=== PATIENT | female | born 1965 | race Caucasian/White ===

== ENCOUNTER 2018-02-19 12:35 | Emergency (ER) | payer MEDICARE, OTHER ==
[~2018-02-19] VITALS: Ht 160 cm; Wt 61.4 kg
[2018-02-19 12:45] VITALS: BP 146/88; PULSE 133; RESP 22; TEMP 99.3; O2SAT 95
[2018-02-19 13:31] VITALS: BP 11/62; PULSE 91; RESP 18; O2SAT 94
[2018-02-19] MEDS ORDERED: AMLO10TA2 PO (13:43)
[2018-02-19] MEDS ORDERED: SERT-132 PO (13:43)
[2018-02-19] MEDS ORDERED: JULUCA PO (13:43)
[2018-02-19 13:51] LABS: AUTOMATED NEUTROPHIL # 7.5 TH/MM3 (1.8-7.7); BASOPHIL # 0.1 TH/MM3 (0-0.2); EOSINOPHIL % 0.1 % (0.0-4.0); HEMOGLOBIN 16.5 GM/DL (11.6-15.3); LYMPH % 22.1 % (9.0-44.0); LYMPHOCYTE # 2.3 TH/MM3 (1.0-4.8); MEAN CELL VOLUME 98.5 FL (80.0-100.0); MEAN CORPUSCULAR HEMOGLOBIN 32.6 PG (27.0-34.0); MEAN CORPUSCULAR HGB CONC 33.1 % (32.0-36.0); MEAN PLATELET VOLUME 6.8 FL (7.0-11.0); MONO % 5.2 % (0.0-8.0); MONOCYTE # 0.5 TH/MM3 (0-0.9); NEUT % 71.6 % (16.0-70.0); PLATELET COUNT 297 TH/MM3 (150-450); RED BLOOD COUNT 5.07 MIL/MM3 (4.00-5.30); RED CELL DISTRIBUTION WIDTH 14.7 % (11.6-17.2); WHITE BLOOD COUNT 10.4 TH/MM3 (4.0-11.0)
[2018-02-19 14:13] LABS: BACTERIA, URINE OCC /hpf; BILIRUBIN, URINE NEG (NEG); BLOOD, URINE SMALL (NEG); GLUCOSE,URINE NEG (NEG); HYALINE CAST, URINE 37 /lpf (RARE); KETONE, URINE 10 mg/dL (NEG); MUCUS URINE FEW /lpf (OCC); NITRITE,URINE NEG (NEG); SQUAMOUS EPITHELIAL CELL URINE 6 /hpf (0-5); URINE COLOR YELLOW (YELLW/STRAW); URINE LEUKOCYTE ESTERASE TRACE (NEG)
[2018-02-19 14:42] LABS: ACETAMINOPHEN LESS THAN 2.0 MCG/ML (10.0-30.0); ALBUMIN 4.4 GM/DL (3.4-5.0); ALKALINE PHOSPHATASE 79 U/L (45-117); ALT (GPT) 49 U/L (10-53); AST (GOT) 50 U/L (15-37); BICARBONATE 14.6 MEQ/L (21.0-32.0); BLOOD UREA NITROGEN 22 MG/DL (7-18); CALCIUM 9.2 MG/DL (8.5-10.1); CHLORIDE 104 MEQ/L (98-107); CREATININE 1.37 MG/DL (0.50-1.00); GLOMERULAR FILTRATION RATE 40 ML/MIN (>89); GLUCOSE,RANDOM 75 MG/DL (74-106); SODIUM (NA) 141 MEQ/L (136-145); TOTAL BILIRUBIN ADULT 0.4 MG/DL (0.2-1.0); TOTAL PROTEIN 8.9 GM/DL (6.4-8.2)
--- NOTE | 2018-02-19 15:12 | PD ---
HPI Chief Complaint: Psychiatric Symptoms Time Seen by Provider: 13:32 Travel History International Travel<30 days: No Contact w/Intl Traveler<30days: No Traveled to known affect area: No History of Present Illness HPI 52-year-old female presents to the emergency department under Flores act. Her 1 month ago and the patient says she had made a statement to her daughter yesterday that she wanted to go be with her . She said the police arrived at her house today and brought her in today because of the statement she made to her daughter. She says she has been drinking a lot of alcohol and she was intoxicated at the time she made the comment. She denies being suicidal. Denies history of suicidal attempts. Denies homicidal ideations. Denies illicit drug use. Denies auditory or visual hallucinations. Denies chest pain, shortness breath, abdominal pain, fever, vomiting, change in urine or stool. Aggravated by the same to me. No known relieving factors. Onset unknown. Duration unknown. Primary CARE providers Dr. Solomon. No known allergies. History of anxiety, HIV, hypertension. Has no other medical complaints. No other modifying factors or associated signs and symptoms per [facility] Past Medical History Hx Anticoagulant Therapy: No Depression: Yes Cardiovascular Problems: Yes (Hypertension) Chemotherapy: No Cerebrovascular Accident: No Diabetes: No Hypertension: Yes Medical other: Yes (HIV) Respiratory: No ?: Not LMP: 5 years ago Past Surgical History Hysterectomy: No Social History Alcohol Use: Yes Tobacco Use: No Substance Use: No Allergies-Medications (Allergen,Severity, Reaction): Coded Allergies: No Known Allergies (Unverified , 02/19/18) Reported Meds & Prescriptions Reported Meds & Active Scripts Active Reported Sertraline (Sertraline HCl) 50 Mg Tab 50 Mg PO DAILY Amlodipine (Amlodipine Besylate) 10 Mg Tab 10 Mg PO DAILY [Juluca] 1 Tab PO DAILY Review of Systems Except as stated in HPI: all other systems reviewed are Neg Physical Exam Narrative GENERAL: Well-nourished, well-developed femur patient, in no acute distress SKIN: Warm and dry. HEAD: Atraumatic. Normocephalic. EYES: Pupils equal and round. ENT: Mucosa pink and moist. NECK: Supple. Trachea midline. CARDIOVASCULAR: Regular rate and rhythm. No murmur appreciated. RESPIRATORY: No accessory muscle use. Clear to auscultation. Breath sounds equal bilaterally. GASTROINTESTINAL: Abdomen soft, non-tender, nondistended. Hepatic and splenic margins not palpable. Bowel sounds are active 4 quadrants. MUSCULOSKELETAL: No obvious deformities. No clubbing. No cyanosis. No edema. BACK: No CVA tenderness. NEUROLOGICAL: Awake and alert. Oriented 3. No obvious cranial nerve deficits. Motor grossly within normal limits. Normal speech. Moves all extremities. 5/5 strength to all extremities. PSYCHIATRIC: No delusional thought processes. No hallucinations. Data Data Last Documented VS Vital Signs Date Time Temp Pulse Resp B/P (MAP) Pulse Ox O2 Delivery O2 Flow Rate FiO2 02/19/18 12:45 99.3 133 22 146/88 (107) 95 Orders Orders Complete Blood Count With Diff (02/19/18 13:34) Comprehensive Metabolic Panel (02/19/18 13:34) Thyroid Stimulating Hormone (02/19/18 13:34) Urinalysis - C+S If Indicated (02/19/18 13:34) Psych Screen (02/19/18 13:34) Drug Screen, Random Urine (02/19/18 13:34) Alcohol (Ethanol) (02/19/18 13:34) Salicylates (Aspirin) (02/19/18 13:34) Tylenol (Acetaminophen) (02/19/18 13:34) Labs Laboratory Tests Test 02/19/18 13:03 02/19/18 13:11 White Blood Count 10.4 TH/MM3 Red Blood Count 5.07 MIL/MM3 Hemoglobin 16.5 GM/DL Hematocrit 50.0 % Mean Corpuscular Volume 98.5 FL Mean Corpuscular Hemoglobin 32.6 PG Mean Corpuscular Hemoglobin Concent 33.1 % Red Cell Distribution Width 14.7 % Platelet Count 297 TH/MM3 Mean Platelet Volume 6.8 FL Neutrophils (%) (Auto) 71.6 % Lymphocytes (%) (Auto) 22.1 % Monocytes (%) (Auto) 5.2 % Eosinophils (%) (Auto) 0.1 % Basophils (%) (Auto) 1.0 % Neutrophils # (Auto) 7.5 TH/MM3 Lymphocytes # (Auto) 2.3 TH/MM3 Monocytes # (Auto) 0.5 TH/MM3 Eosinophils # (Auto) 0.0 TH/MM3 Basophils # (Auto) 0.1 TH/MM3 CBC Comment DIFF FINAL Differential Comment Blood Urea Nitrogen 22 MG/DL Creatinine 1.37 MG/DL Random Glucose 75 MG/DL Total Protein 8.9 GM/DL Albumin 4.4 GM/DL Calcium Level 9.2 MG/DL Alkaline Phosphatase 79 U/L Aspartate Amino Transf (AST/SGOT) 50 U/L Alanine Aminotransferase (ALT/SGPT) 49 U/L Total Bilirubin 0.4 MG/DL Sodium Level 141 MEQ/L Potassium Level 4.0 MEQ/L Chloride Level 104 MEQ/L Carbon Dioxide Level 14.6 MEQ/L Anion Gap 22 MEQ/L Estimat Glomerular Filtration Rate 40 ML/MIN Thyroid Stimulating Hormone 3rd Gen 0.941 uIU/ML Salicylates Level 2.4 MG/DL Acetaminophen Level LESS THAN 2.0 MCG/ML Ethyl Alcohol Level 313 MG/DL Urine Color YELLOW Urine Turbidity HAZY Urine pH 6.0 Urine Specific [place] 1.013 Urine Protein 100 mg/dL Urine Glucose (UA) NEG mg/dL Urine Ketones 10 mg/dL Urine Occult Blood SMALL Urine Nitrite NEG Urine Bilirubin NEG Urine Urobilinogen LESS THAN 2.0 MG/DL Urine Leukocyte Esterase TRACE Urine RBC 1 /hpf Urine WBC 5 /hpf Urine Squamous Epithelial Cells 6 /hpf Urine Bacteria OCC /hpf Urine Hyaline Casts 37 /lpf Urine Mucus FEW /lpf Microscopic Urinalysis Comment CULT NOT INDICATED Urine Opiates Screen NEG Urine Barbiturates Screen NEG Urine Amphetamines Screen NEG Urine Benzodiazepines Screen NEG Urine Cocaine Screen NEG Urine Cannabinoids Screen NEG MDM Medical Decision Making Medical Screen Exam Complete: Yes Emergency Medical Condition: Yes Medical Record Reviewed: Yes Differential Diagnosis Suicidal ideation, drug-induced mood disorder, medical clearance for psychiatric admission Narrative Course Patient presents under a Flores act. Physical examination and vital signs are essentially unremarkable. Patient has no medical complaints to report. Psych screen has been ordered. If the laboratory results are unremarkable, the patient will be medically cleared for psychiatric evaluation and disposition. Diagnosis Primary Impression: Medical clearance for psychiatric admission Condition: Stable Kesha Mcneil Feb 19, 2018 15:12
[2018-02-20 05:59] VITALS: BP 162/77; PULSE 101; RESP 18; O2SAT 99
--- NOTE | 2018-02-20 09:37 | PD ---
Physical Exam Date Seen by Provider: Feb 20, 2018 Time Seen by Provider: 09:35 Narrative For full history and physical examination please see previous notes. Data Data Last Documented VS Vital Signs Date Time Temp Pulse Resp B/P (MAP) Pulse Ox O2 Delivery O2 Flow Rate FiO2 02/20/18 05:59 101 18 162/77 (105) 99 Room Air 02/19/18 12:45 99.3 Orders Orders Complete Blood Count With Diff (02/19/18 13:34) Comprehensive Metabolic Panel (02/19/18 13:34) Thyroid Stimulating Hormone (02/19/18 13:34) Urinalysis - C+S If Indicated (02/19/18 13:34) Psych Screen (02/19/18 13:34) Drug Screen, Random Urine (02/19/18 13:34) Alcohol (Ethanol) (02/19/18 13:34) Salicylates (Aspirin) (02/19/18 13:34) Tylenol (Acetaminophen) (02/19/18 13:34) Diet Regular Basic (02/19/18 Dinner) Diet Regular Basic (02/20/18 Breakfast) Ed Discharge Order (02/20/18 09:35) Labs Laboratory Tests Test 02/19/18 13:03 02/19/18 13:11 White Blood Count 10.4 TH/MM3 Red Blood Count 5.07 MIL/MM3 Hemoglobin 16.5 GM/DL Hematocrit 50.0 % Mean Corpuscular Volume 98.5 FL Mean Corpuscular Hemoglobin 32.6 PG Mean Corpuscular Hemoglobin Concent 33.1 % Red Cell Distribution Width 14.7 % Platelet Count 297 TH/MM3 Mean Platelet Volume 6.8 FL Neutrophils (%) (Auto) 71.6 % Lymphocytes (%) (Auto) 22.1 % Monocytes (%) (Auto) 5.2 % Eosinophils (%) (Auto) 0.1 % Basophils (%) (Auto) 1.0 % Neutrophils # (Auto) 7.5 TH/MM3 Lymphocytes # (Auto) 2.3 TH/MM3 Monocytes # (Auto) 0.5 TH/MM3 Eosinophils # (Auto) 0.0 TH/MM3 Basophils # (Auto) 0.1 TH/MM3 CBC Comment DIFF FINAL Differential Comment Blood Urea Nitrogen 22 MG/DL Creatinine 1.37 MG/DL Random Glucose 75 MG/DL Total Protein 8.9 GM/DL Albumin 4.4 GM/DL Calcium Level 9.2 MG/DL Alkaline Phosphatase 79 U/L Aspartate Amino Transf (AST/SGOT) 50 U/L Alanine Aminotransferase (ALT/SGPT) 49 U/L Total Bilirubin 0.4 MG/DL Sodium Level 141 MEQ/L Potassium Level 4.0 MEQ/L Chloride Level 104 MEQ/L Carbon Dioxide Level 14.6 MEQ/L Anion Gap 22 MEQ/L Estimat Glomerular Filtration Rate 40 ML/MIN Thyroid Stimulating Hormone 3rd Gen 0.941 uIU/ML Salicylates Level 2.4 MG/DL Acetaminophen Level LESS THAN 2.0 MCG/ML Ethyl Alcohol Level 313 MG/DL Urine Color YELLOW Urine Turbidity HAZY Urine pH 6.0 Urine Specific [place] 1.013 Urine Protein 100 mg/dL Urine Glucose (UA) NEG mg/dL Urine Ketones 10 mg/dL Urine Occult Blood SMALL Urine Nitrite NEG Urine Bilirubin NEG Urine Urobilinogen LESS THAN 2.0 MG/DL Urine Leukocyte Esterase TRACE Urine RBC 1 /hpf Urine WBC 5 /hpf Urine Squamous Epithelial Cells 6 /hpf Urine Bacteria OCC /hpf Urine Hyaline Casts 37 /lpf Urine Mucus FEW /lpf Microscopic Urinalysis Comment CULT NOT INDICATED Urine Opiates Screen NEG Urine Barbiturates Screen NEG Urine Amphetamines Screen NEG Urine Benzodiazepines Screen NEG Urine Cocaine Screen NEG Urine Cannabinoids Screen NEG MDM Medical Record Reviewed: Yes Supervised Visit with GIULIA: No Narrative Course Patient is a 52-year-old female that presented to emerge department under Flores act, she was seen and evaluated emergency department, medically cleared. Patient was then evaluated by psychiatry. Patient was found to be stable for discharge. Please see their documentation. Diagnosis Primary Impression: Alcohol intoxication Qualified Codes: F10.920 - Alcohol use, unspecified with intoxication, uncomplicated [facility]: [facility] 1 day Patient Instructions: Abuse of Alcohol (ED), Alcohol Intoxication (DC), General Instructions Med/Other Pt SpecificInfo: No Meds Exist/No RX given Disposition: 01 DISCHARGE HOME Condition: Stable Merline Perdomo Feb 20, 2018 09:37
--- NOTE | 2018-02-20 09:44 | PD ---
History of Present Illness Chief Complaint: Psychiatric Symptoms Time Seen by Provider: 09:20 Travel History International Travel<30 Days: No Contact w/Intl Traveler<30days: No Known affected area: No Legal Status Legal Status: Flores Act Flores Act Signed By: Jessica Acuna Flores Act Comment: Officer Abiodun Casarezmehul #[id number] History of Present Illness: History of Present Illness HPI 52-year-old, , female with history of alcohol abuse, who while in context of acute alcohol intoxication was placed under a Flores act by law enforcement. The Flores act alleges that the patient was talking with her daughter and indicated to her daughter that she wanted to go be with her and was thinking about suicide. The patient did not make any attempt at harming herself. Her blood alcohol level on arrival to [facility] was 313. She was allowed to sober up clinically and was monitored and presented no suicidality. EMR is reviewed. No previous contact with [facility] psychiatry. Patient is seen in J pod. Donta CHEATHAM present during evaluation. The patient is alert, oriented. She is clinically sober. No evidence of any withdrawal is noted. There is no evidence of psychosis, no trace, no hypomania. The patient admits to feeling sad over loss of who in December. There is no suicidal or homicidal ideation, intent or plan. She states" I have been having a hard time managing all the financial issues after my 's . But I would never kill myself I have a wonderful family, grandkids, I love the Lord." Patient also states she has a sponsor and will contact her if she is released. Patient also has plans on visiting her daughter in March after the of her second grandchild. She admits to recent relapse on alcohol and states that she was drunk when she made the statement. PFSH Past Medical History Hx Anticoagulant Therapy: No Depression: Yes Cardiovascular Problems: Yes (Hypertension) Chemotherapy: No Cerebrovascular Accident: No Diabetes: No Hypertension: Yes Medical other: Yes (HIV) Respiratory: No ?: Not LMP: 5 years ago Past Surgical History Hysterectomy: No Psychiatric History Psychiatric History Hx Psychiatric Treatment: Pt denies any Psych history. No previous suicide attempts. No history of self-injurious behavior. History of Inpatient Treatment: No Guns or firearms in home: No Social History Patient is . Lives by herself. Has a daughter in [place] Hx Alcohol Use: Yes Hx Tobacco Use: No Hx Substance Use: Yes Substance Use Type: Alcohol (Has been drinking most of her adult life. Longest period of sobriety 10 years. Active in ) Hx of Substance Use Treatment: No Family Psychiatric History Negative Allergies-Medications (Allergen,Severity, Reaction): Coded Allergies: No Known Allergies (Unverified , 02/19/18) Reported Meds & Prescriptions Reported Meds & Active Scripts Active Reported Sertraline (Sertraline HCl) 50 Mg Tab 50 Mg PO DAILY Amlodipine (Amlodipine Besylate) 10 Mg Tab 10 Mg PO DAILY [Juluca] 1 Tab PO DAILY Review of Systems Psychiatric: DENIES: Anxiety, Confusion, Mood changes, Depression, Hallucinations, Agitation, Suicidal Ideation, Homicidal Ideation, Delusions Mental Status Examination Appearance: Appropriate Consciousness: Alert Orientation: x4 Motor Activity: Normal gait Speech: Unremarkable Language: Adequate Fund of Knowledge: Adequate Attention and Concentration: Adequate Memory: Unremarkable Mood: Appropriate Affect: Appropriate Thought Process & Associations: Intact, Logical, Goal directed Thought Content: Appropriate Hallucination Type: None Delusion Type: None Suicidal Ideation: No Suicidal Plan: No Suicidal Intention: No Homicidal Ideation: No Homicidal Plan: No Homicidal Intention: No Insight: Adequate Judgment: Adequate [facility] Medical Decision Making Medical Record Reviewed: Yes Assessment/Plan 52-year-old female with no previous suicide attempt, no previous psychiatric history, history of alcohol dependence with 10 years sobriety, recent relapse after the of her in December, who while intoxicated made a statement to her daughter that she was thinking about suicide. The patient wants clinically sober, denies any suicidal or homicidal ideation, intent or plan. She is future oriented and has adequate protective factors. Patient is provided psychoeducation. She is encouraged to look into grief share program. She also will contact [facility] for counseling and support the patient is requesting to be discharged and presents no evidence of unstable mental illness. Therefore the Flores act will be lifted. Patient is psychiatric clear for discharge from the ED. Orders Orders Complete Blood Count With Diff (02/19/18 13:34) Comprehensive Metabolic Panel (02/19/18 13:34) Thyroid Stimulating Hormone (02/19/18 13:34) Urinalysis - C+S If Indicated (02/19/18 13:34) Psych Screen (02/19/18 13:34) Drug Screen, Random Urine (02/19/18 13:34) Alcohol (Ethanol) (02/19/18 13:34) Salicylates (Aspirin) (02/19/18 13:34) Tylenol (Acetaminophen) (02/19/18 13:34) Diet Regular Basic (02/19/18 Dinner) Diet Regular Basic (02/20/18 Breakfast) Ed Discharge Order (02/20/18 09:35) Results Vital Signs Date Time Temp Pulse Resp B/P (MAP) Pulse Ox O2 Delivery O2 Flow Rate FiO2 02/20/18 09:27 02/20/18 05:59 101 18 162/77 (105) 99 Room Air 02/19/18 12:45 99.3 133 22 146/88 (107) 95 Laboratory Tests Test 02/19/18 13:03 02/19/18 13:11 White Blood Count 10.4 Red Blood Count 5.07 Hemoglobin 16.5 Hematocrit 50.0 Mean Corpuscular Volume 98.5 Mean Corpuscular Hemoglobin 32.6 Mean Corpuscular Hemoglobin Concent 33.1 Red Cell Distribution Width 14.7 Platelet Count 297 Mean Platelet Volume 6.8 Neutrophils (%) (Auto) 71.6 Lymphocytes (%) (Auto) 22.1 Monocytes (%) (Auto) 5.2 Eosinophils (%) (Auto) 0.1 Basophils (%) (Auto) 1.0 Neutrophils # (Auto) 7.5 Lymphocytes # (Auto) 2.3 Monocytes # (Auto) 0.5 Eosinophils # (Auto) 0.0 Basophils # (Auto) 0.1 CBC Comment DIFF FINAL Differential Comment Blood Urea Nitrogen 22 Creatinine 1.37 Random Glucose 75 Total Protein 8.9 Albumin 4.4 Calcium Level 9.2 Alkaline Phosphatase 79 Aspartate Amino Transf (AST/SGOT) 50 Alanine Aminotransferase (ALT/SGPT) 49 Total Bilirubin 0.4 Sodium Level 141 Potassium Level 4.0 Chloride Level 104 Carbon Dioxide Level 14.6 Anion Gap 22 Estimat Glomerular Filtration Rate 40 Thyroid Stimulating Hormone 3rd Gen 0.941 Salicylates Level 2.4 Acetaminophen Level LESS THAN 2.0 Ethyl Alcohol Level 313 Urine Color YELLOW Urine Turbidity HAZY Urine pH 6.0 Urine Specific [place] 1.013 Urine Protein 100 Urine Glucose (UA) NEG Urine Ketones 10 Urine Occult Blood SMALL Urine Nitrite NEG Urine Bilirubin NEG Urine Urobilinogen LESS THAN 2.0 Urine Leukocyte Esterase TRACE Urine RBC 1 Urine WBC 5 Urine Squamous Epithelial Cells 6 Urine Bacteria OCC Urine Hyaline Casts 37 Urine Mucus FEW Microscopic Urinalysis Comment CULT NOT INDICATED Urine Opiates Screen NEG Urine Barbiturates Screen NEG Urine Amphetamines Screen NEG Urine Benzodiazepines Screen NEG Urine Cocaine Screen NEG Urine Cannabinoids Screen NEG Diagnosis Primary Impression: Alcohol intoxication Psychiatrically Cleared: Yes Referrals: [facility] day Departure Forms: Tests/Procedures Patient Instructions: General Instructions, Alcohol Intoxication (DC), Abuse of Alcohol (ED) Med/ Other Pt Specific Info: No Meds Exist/No RX given Disposition: 01 DISCHARGE HOME Condition: Stable Problem Qualifiers Primary Impression: Alcohol intoxication Qualified Codes: F10.920 - Alcohol use, unspecified with intoxication, uncomplicated Morenita Pabon [facility] Feb 20, 2018 09:44
== END 2018-02-20 09:50 | disposition home or self-care (01) ==
LOC: NEPD 12:35 → NEPJ 02-20 09:50
DX: F10.129 Alcohol abuse with intoxication, unspecified (principal); I10 Essential (primary) hypertension; F32.9 Major depressive disorder, single episode, unspecified; Y90.8 Blood alcohol level of 240 mg/100 ml or more; Z79.899 Other long term (current) drug therapy
CPT/HCPCS: 80053; 80307; 81001; 84443; 85025; 99283